=== PATIENT | female | born 2000 | race Two or more races ===

== ENCOUNTER 2020-03-21 00:14 | Emergency (ER) | payer OTHER ==
[~2020-03-21] VITALS: Ht 165.1 cm; Wt 68.0 kg
[2020-03-21 00:14] VITALS: BP 126/74
[2020-03-21] MEDS ORDERED: IV NORMAL SALINE 1,000ML 1,000 ML IV ONE (00:30)
[2020-03-21] MEDS ORDERED: methylPREDNISolone SOD SUCC PF 125 MG/2 ML VIAL. IV ONE (00:45)
[2020-03-21] MEDS ORDERED: FAMOTIDINE 20 MG/2 ML VIAL IVP ONE (00:45)
[2020-03-21] MEDS ORDERED: DOXYCYCLINE HYCLATE 100 MG TABLET PO ONE (00:45)
[2020-03-21] MEDS ORDERED: diphenhydrAMINE 50 MG/ML VIAL IVP ONE (00:45)
--- NOTE | 2020-03-21 00:51 | PHYS DOC ---
General Adult EDM: Chief Complaint: SKIN PROBLEM HPI: HPI: 19-year-old female presents with rash. The patient was running in the [place] yesterday when she felt like she got bit by something on her right inner thigh. She had a large 6cm, raised erythematous area with a small bruise at the center yesterday. Today the area is not raised, but it is still erythematous. She has developed a diffuse sandpaper type rash all over her body. It is mildly pruritic. She has had some periorbital swelling as well. No difficulty breathing or swallowing. At first she thought she was having a flareup of her baseline eczema, but it does not look like that and it is all over her body instead of the usual areas. She is wants to make sure she is not having a serious problem. She denies fever chills. She has had no other exposures or new products. Review of Systems: Review of Systems: Constitutional: Denies fever or chills Eyes: Denies change in visual acuity HENT: Denies nasal congestion or sore throat Respiratory: Denies cough or shortness of breath Cardiovascular: Denies chest pain or edema GI: Denies abdominal pain, nausea, vomiting, bloody stools or diarrhea : Denies dysuria Musculoskeletal: Denies back pain or joint pain Integument: Rash Neurologic: Denies headache, focal weakness or sensory changes Endocrine: Denies polyuria or polydipsia Lymphatic: Denies swollen glands Psychiatric: Denies depression or anxiety Heart Score: Risk Factors: Risk Factors: DM, Current or recent (<one month) smoker, HTN, HLP, family history of CAD, obesity. Risk Scores: Score 0 - 3: 2.5% MACE over next 6 weeks - Discharge Home Score 4 - 6: 20.3% MACE over next 6 weeks - Admit for Clinical Observation Score 7 - 10: 72.7% MACE over next 6 weeks - Early Invasive Strategies Current Medications: Current Meds: Current Medications Medications (Trade) Dose Ordered Sig/Carmen Start Time Stop Time Status Last Admin Dose Admin Diphenhydramine HCl (Benadryl) 25 mg 1X ONCE 03/21/20 00:45 03/21/20 00:46 DC Doxycycline Hyclate (Vibra-Tab) 200 mg 1X ONCE 03/21/20 00:45 03/21/20 00:46 DC Famotidine (Pepcid Vial) 20 mg 1X ONCE 03/21/20 00:45 03/21/20 00:46 DC Methylprednisolone Sodium Succinate (SOLU-Medrol 125MG VIAL) 125 mg 1X ONCE 03/21/20 00:45 03/21/20 00:46 DC Sodium Chloride 1,000 ml @ 1,000 mls/hr 1X ONCE 03/21/20 00:30 03/21/20 01:29 Allergies: Allergies: Allergies Coded Allergies Type Severity Reaction Last Updated Verified Unable to Assess 03/21/20 No Physical Exam: PE: Constitutional: Well developed, well nourished, no acute distress, non-toxic appearance. [] HENT: Normocephalic, atraumatic, bilateral external ears normal, oropharynx moist, no oral exudates, nose normal. Tonsillolith on left [] Eyes: PERRLA, EOMI, conjunctiva normal, no discharge. Mild periorbital swelling. [] Neck: Normal range of motion, no tenderness, supple, no stridor. [] Cardiovascular:Heart rate regular rhythm, no murmur [] Lungs & Thorax: Bilateral breath sounds clear to auscultation [] Abdomen: Bowel sounds normal, soft, no tenderness, no masses, no pulsatile masses. [] Skin: Diffuse, mildly erythematous, sandpaper type rash of the bilateral upper and lower extremities. 6 cm erythematous area with central bruise of the right upper inner thigh. [] Back: No tenderness, no CVA tenderness. [] Extremities: No tenderness, no cyanosis, no clubbing, ROM intact, no edema. [] Neurologic: Alert and oriented X 3, normal motor function, normal sensory function, no focal deficits noted. [] Psychologic: Affect normal, judgement normal, mood normal. [] EKG: EKG: [] Radiology/Procedures: Radiology/Procedures: [] Course & Med Decision Making: Course & Med Decision Making Pertinent Labs and Imaging studies reviewed. (See chart for details) The patient's rash does look like a bull's-eye. Lyme disease seems unlikely, but I will cover with a prophylactic dose of doxycycline since it is less than 72 hours since the bite. I will also give her a liter normal saline, 25 mg of Benadryl, 20 mg of Pepcid, and 125 mg of Solu-Medrol IV. The patient's labs are unremarkable. Given the acuteness of the reaction, this likely will be sufficient treatment. I will not discharge her with prescription at this time. She can follow-up with her primary physician if her symptoms do not resolve. If they worsen greatly, she is welcome return to the emergency room. She is stable for discharge at this time. [] Dragon Disclaimer: Dragon Disclaimer: This electronic medical record was generated, in whole or in part, using a voice recognition dictation system. Departure Departure: Impression: Primary Impression: Insect bite Qualified Codes: S70.361A - Insect bite (nonvenomous), right thigh, initial encounter; W57.XXXA - Bitten or stung by nonvenomous insect and other nonvenomous arthropods, initial encounter Additional Impression: Cutaneous reaction to insect bite Disposition: HOME/RESIDENCE PRIOR TO ADM Condition: STABLE Referrals: ROSELIA GREGG (PCP) Patient Instructions: Insect Bite, [id number] Justification of Admission: Justification of Admission: Justification of Admission Dx: N/A ORIANA BROWN DO Mar 21, 2020 00:51
[2020-03-21 01:05] LABS: BASO % 1 % (0-3); EOS # 0.2 x10^3/uL (0.0-0.7); EOS % 3 % (0-3); HEMATOCRIT 41.3 % (36.0-47.0); HEMOGLOBIN 13.9 g/dL (12.0-15.5); LYMPH # 2.2 x10^3/uL (1.0-4.8); LYMPH % 32 % (24-48); MEAN CORPUSCULAR HEMOGLOBIN 30 pg (25-35); MEAN CORPUSCULAR HGB CONC 34 g/dL (31-37); MEAN CORPUSCULAR VOLUME 89 fL (79-100); MONO # 0.4 x10^3/uL (0.0-1.1); MONO % 5 % (0-9); NEUT # 4.2 x10^3uL (1.8-7.7); NEUT % 60 % (31-73); PLATELET COUNT 264 x10^3/uL (140-400); RED BLOOD COUNT 4.67 x10^6/uL (3.50-5.40); RED CELL DISTRIBUTION WIDTH 13.1 % (11.5-14.5); WHITE BLOOD COUNT 6.9 x10^3/uL (4.0-11.0)
[2020-03-21 01:13] LABS: CALCIUM 8.8 mg/dL (8.5-10.1); POTASSIUM 4.1 mmol/L (3.5-5.1)
[2020-03-21 01:20] LABS: ALBUMIN 3.9 g/dL (3.4-5.0); ALBUMIN/GLOBULIN RATIO 1.1 (1.0-1.7); TOTAL BILIRUBIN 0.4 mg/dL (0.2-1.0); TOTAL PROTEIN 7.3 g/dL (6.4-8.2)
== END 2020-03-21 01:35 | disposition home or self-care (01) ==
LOC: ER 00:14
DX: S70.361A Insect bite (nonvenomous), right thigh, initial encounter (principal); L98.8 Other specified disorders of the skin and subcutaneous tissue; W57.XXXA Bitten or stung by nonvenomous insect and other nonvenomous arthropods, initial encounter; Y93.89 Activity, other specified; Y92.89 Other specified places as the place of occurrence of the external cause; Y99.8 Other external cause status
CPT/HCPCS: 36415; 80053; 85025; 96374; 96375; 99284; J1200; J2930; J3490

== ENCOUNTER 2020-08-03 11:13 | Emergency (ER) | payer OTHER ==
[~2020-08-03] VITALS: Ht 165.1 cm; Wt 70.0 kg
[2020-08-03] MEDS ORDERED: methylPREDNISolone SOD SUCC PF 125 MG/2 ML VIAL. IV ONE (11:30)
[2020-08-03] MEDS ORDERED: IV NORMAL SALINE 1,000ML 1,000 ML IV ONE (11:30)
[2020-08-03] MEDS ORDERED: KETOROLAC 30 MG/ML VIAL. IVP ONE (11:45)
[2020-08-03] MEDS ORDERED: IOHEXOL 300 MG/ML 75 ML VIAL. IV ONE (11:45)
--- NOTE | 2020-08-03 12:05 | PHYS DOC ---
Past History Past Medical History: Other Additional Past Medical Histor: PCOS Past Surgical History: No Surgical History Alcohol Use: None General Adult EDM: Chief Complaint: SORE THROAT HPI: HPI: Patient is a 25-year-old female who presented to ER with sore throat for about 7 days. Patient was seen by her family physician, diagnosed with pharyngitis, had negative rapid strep test. Patient was put on amoxicillin 500 mg 3 times a day for 10 days. Patient has been on the antibiotic for 4 days already but did not get any better so she called her family physician who told to come to ER for evaluation. Patient complained of left-sided neck pain. Review of Systems: Review of Systems: Constitutional: Denies fever or chills Eyes: Denies change in visual acuity HENT: Positive for sore throat Respiratory: Denies cough or shortness of breath Cardiovascular: Denies chest pain or edema GI: Denies abdominal pain, nausea, vomiting, bloody stools or diarrhea : Denies dysuria Musculoskeletal: Denies back pain or joint pain Integument: Denies rash Neurologic: Denies headache, focal weakness or sensory changes Endocrine: Denies polyuria or polydipsia Lymphatic: Denies swollen glands Psychiatric: Denies depression or anxiety Current Medications: Current Meds: Current Medications Medications (Trade) Dose Ordered Sig/Carmen Start Time Stop Time Status Last Admin Dose Admin Ceftriaxone Sodium 1 gm/ Sodium Chloride 50 ml @ 100 mls/hr 1X ONCE 08/03/20 11:30 08/03/20 11:59 DC Iohexol (Omnipaque 300 Mg/ml) 75 ml 1X ONCE 08/03/20 11:45 08/03/20 11:50 DC 08/03/20 11:53 75 ML Ketorolac Tromethamine (Toradol 30mg Vial) 30 mg 1X ONCE 08/03/20 11:45 08/03/20 11:51 DC Methylprednisolone Sodium Succinate (SOLU-Medrol 125MG VIAL) 125 mg 1X ONCE 08/03/20 11:30 08/03/20 11:51 DC Sodium Chloride 1,000 ml @ 1,000 mls/hr 1X ONCE 08/03/20 11:30 08/03/20 12:29 Allergies: Allergies: Allergies Coded Allergies Type Severity Reaction Last Updated Verified No Known Drug Allergies 08/03/20 No Physical Exam: PE: Constitutional: Well developed, well nourished, no acute distress, non-toxic appearance. [] HENT: Normocephalic, atraumatic, bilateral external ears normal, oropharynx is moist, inflamed, bilateral tonsillar hypertrophy with exudation, uvula is swollen and deviated to left side, swollen and tender left anterior cervical lymph node. Eyes: PERRLA, EOMI, conjunctiva normal, no discharge. [] Neck: Normal range of motion, no tenderness, supple, no stridor. [] Cardiovascular:Heart rate regular rhythm, no murmur [] Lungs & Thorax: Bilateral breath sounds clear to auscultation [] Abdomen: Bowel sounds normal, soft, no tenderness, no masses, no pulsatile masses. [] Skin: Warm, dry, no erythema, no rash. [] Back: No tenderness, no CVA tenderness. [] Extremities: No tenderness, no cyanosis, no clubbing, ROM intact, no edema. [] Neurologic: Alert and oriented X 3, normal motor function, normal sensory function, no focal deficits noted. [] Psychologic: Affect normal, judgement normal, mood normal. [] Current Patient Data: Vital Signs: Vital Signs Date Time Temp Pulse Resp B/P (MAP) Pulse Ox O2 Delivery O2 Flow Rate FiO2 08/03/20 11:20 98.6 68 14 125/73 (90) 100 EKG: EKG: [] Radiology/Procedures: Radiology/Procedures: [][place] [address] IMAGING REPORT Signed PATIENT: GOOD MAC AACCOUNT: [id number] : 2000 LOCATION: ER AGE: 20 SEX: F EXAM STATUS: REG ER ORD. PHYSICIAN: GLADYS SOUZA DO REASON: sorethroat, left side neck swelling and pain PROCEDURE: CT SOFT TISSUE NECK W/CONTRAST CT SOFT TISSUE NECK W/CONTRAST dated 08/03/2020 11:29 AM Indication:Reason: sorethroat, left side neck swelling and pain / Spl. Instructions: omni 350 75ml, pt shielded / History: Comparison: No comparison is available. Technique: CT images were made through the neck using an infusion of 75 L Omnipaque 300. Sagittal and coronal reconstructions were performed. One or more of the following individualized dose reduction techniques were utilized for this examination: 1. Automated exposure control 2. Adjustment of the mA and/or kV according to patient size 3. Use of iterative reconstruction technique Findings: The tonsillar tissue is very thickened bilaterally, no rim-enhancing fluid collection is seen to indicate abscess. There are scattered prominent cervical nodes bilaterally. There also appear to be some prominent axillary and subpectoral nodes. The largest individual node may be a right jugulodigastric node that measures about 1.9 x 1.2 cm. The airway otherwise appears normal. The sinuses and mastoid air cells are clear. The salivary glands and thyroid show no abnormality. IMPRESSION: There is prominent tonsillar tissue bilaterally without evidence of a discrete mass or abscess. There is also lymph node prominence through the neck as well as in the axillary and subpectoral regions. This could be reactive in nature, although lymphoproliferative disorder must also be considered. Electronically signed by: Jame Penny Jr., MD (08/03/2020 12:18 PM) [id number] DICTATED AND SIGNED BY: JAME PENNY Jr, MD DATE: 08/03/20 1218 CC: ROSELIA GREGG; GLADYS SOUZA DO ~MTH0 0 Heart Score: Risk Factors: Risk Factors: DM, Current or recent (<one month) smoker, HTN, HLP, family history of CAD, obesity. Risk Scores: Score 0 - 3: 2.5% MACE over next 6 weeks - Discharge Home Score 4 - 6: 20.3% MACE over next 6 weeks - Admit for Clinical Observation Score 7 - 10: 72.7% MACE over next 6 weeks - Early Invasive Strategies Course & Med Decision Making: Course & Med Decision Making Pertinent Labs and Imaging studies reviewed. (See chart for details) Patient is a 20-year-old female with exudative tonsillitis, CT scan her neck did not show any abscess. Patient will be discharged home with Zithromax and steroid. She will finish her amoxicillin she will need follow-up with her family physician next week for reevaluation. Katy Disclaimer: Katy Disclaimer: This electronic medical record was generated, in whole or in part, using a voice recognition dictation system. Departure Departure: Impression: Primary Impression: Tonsillitis with exudate Disposition: 01 DC HOME SELF CARE/HOMELESS Condition: STABLE Referrals: ROSELIA GREGG (PCP) FOLLOW UP WITH YOUR DOCTOR NEXT WEEK Patient Instructions: Tonsillitis Additional Instructions: Thank you for visiting our Emergency Department. We appreciate you trusting us with your care. If any additional problems come up don't hesitate to return to visit us. Please follow up with your primary care provider so they can plan additional care if needed and know about the problem that you had. If symptoms worsen come back to the Emergency Department. Any concerning symptoms that start such as chest pain, shortness of air, weakness or numbness on one side of the body, running high fevers or any other concerning symptoms return to the ER. Scripts Azithromycin (ZITHROMAX) 250 Mg Tablet 1 PKG PO UD for TONSILITIS, #6 TAB Prov: GLADYS SOUZA DO 08/03/20 Prednisone (PREDNISONE) 20 Mg Tablet 1 TAB PO DAILY for TONSILLITIS for 7 Days, #7 TAB Prov: GLADYS SOUZA DO 08/03/20 GLADYS SOUZA DO Aug 03, 2020 12:05
--- NOTE | 2020-08-03 12:20 | RAD ---
CT SOFT TISSUE NECK W/CONTRAST dated 08/03/2020 11:29 AM Indication:Reason: sorethroat, left side neck swelling and pain / Spl. Instructions: omni 350 75ml, pt shielded / History: Comparison: No comparison is available. Technique: CT images were made through the neck using an infusion of 75 L Omnipaque 300. Sagittal and coronal reconstructions were performed. One or more of the following individualized dose reduction techniques were utilized for this examination: 1. Automated exposure control 2. Adjustment of the mA and/or kV according to patient size 3. Use of iterative reconstruction technique Findings: The tonsillar tissue is very thickened bilaterally, no rim-enhancing fluid collection is seen to indicate abscess. There are scattered prominent cervical nodes bilaterally. There also appear to be some prominent axillary and subpectoral nodes. The largest individual node may be a right jugulodigastric node that measures about 1.9 x 1.2 cm. The airway otherwise appears normal. The sinuses and mastoid air cells are clear. The salivary glands and thyroid show no abnormality. IMPRESSION: There is prominent tonsillar tissue bilaterally without evidence of a discrete mass or abscess. There is also lymph node prominence through the neck as well as in the axillary and subpectoral regions. This could be reactive in nature, although lymphoproliferative disorder must also be considered. Electronically signed by: Roni Penny Jr., MD (08/03/2020 12:18 PM) [id number]
[2020-08-03] MEDS ORDERED: cefTRIAXone SODIUM 1 GM VIAL ONE (12:22)
[2020-08-03] MEDS ORDERED: IV NORMAL SALINE 50ML 50 ML ONE (12:22)
[2020-08-03] MEDS ORDERED: PRED20TA PO (12:35)
[2020-08-03] MEDS ORDERED: AZIT250T PO (12:35)
[2020-08-03 13:28] VITALS: BP 108/56
== END 2020-08-03 13:30 | disposition home or self-care (01) ==
LOC: ER 11:13
DX: J03.90 Acute tonsillitis, unspecified (principal); M54.2 Cervicalgia
CPT/HCPCS: 70491; 87880; 96365; 96375; 99285; J0696; J1885; J2930; J7030; Q9967